=== PATIENT | female | born 1955 | race Caucasian/White ===

== ENCOUNTER → 2017-01-16 | Outpatient (CLI) | payer BC ==
[~2017-01-16] MED LIST: ALLEGRA-D1 TAB.SR3 PO; CALCIUM 500 +1 EAC6 PO; CELECOXIB200 MG PO; DEXILANT60 MG PO; DULOXETINE HCL60 M1 PO; GABAPENTIN400 M2 PO; GABAPENTIN800 MG PO; LEVOXYL50 MC1 PO; LORTAB 7.5-3251 EACH PO; LOSARTAN-HCTZ1 EAC1 PO; MAGNESIUM GLUC200 MG PO; MULTI VITAMIN1 EACH PO; PERCOCET 7.5-31 EACH PO; SEROQUEL PO; SINGULAIR PO; VITAMIN C1000 M2 PO; XARELTO10 MG PO
--- NOTE | ~2017-01-16 | CT92 ---
[facility] A Service of [facility] & [facility] RADIOLOGY TEXT RESULTS PATIENT: SARIKA THOMPSON LOCATION: CCAT : 53 UNIT #: [id number] AGE: [address]: Jovan Ryan MD SEX: F ORDER DR: [id number] [facility] [address] [place], [place] [address] [id number] O MR#: [id number] Acc #: [id number] NAME: SARIKA THOMPSON : 1955 SEX: F STUDY DATE/TIME: 01/16/2017 16:27 UNIT: CCA ROOM: STUDY DESCRIPTION: CT Lower Ext Lt Wo Cont Attending Physician: Dayton Ryan M.D. Referring Physician: Dayton Ryan M.D. Ordering Physician: Dayton Ryan M.D. Primary Care Physician: eYnni Geller M.D. MEDICAL IMAGING REPORT This report is preliminary unless electronic signature is present EXAM CT left ankle HISTORY 61-year-old female with history of injury 18-20 years ago now with advanced degenerative joint disease, pain mostly lateral aspect, worse over the last 2 years. COMPARISON Left ankle films 08/13/2016. This CT exam was performed with one or more of the following radiation dose reduction techniques: automatic exposure control, adjustment of mA and/or kV according to patient size, and iterative reconstruction. FINDINGS Thin section axial images performed through the left ankle and hindfoot. Multiplanar reconstructed images were reviewed at a workstation. Examination demonstrates advanced arthropathy involving primarily the mid to lateral aspect of the ankle joint with asymmetric joint space narrowing and associated medial tilting of the talus. Extensive subchondral cystic changes noted within the tibial plafond and also within the lateral talar dome. Arthropathic changes also identified within the posterior subtalar joint with a small amount of sclerosis and subchondral cystic change and also cystic change and joint space narrowing at the lateral distal tib-fib syndesmosis. 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 There is some fragmentation along the anterior aspect of the tibial plafond may represent fracturing through an osteophyte. Additional fragmentation also seen along the medial aspect of the ankle joint. Midfoot alignment appears maintained. Small joint effusion and mild soft STS. [facility] A Service of [facility] & [facility] RADIOLOGY TEXT RESULTS PATIENT: SARIKA THOMPSON LOCATION: [facility] : 53 UNIT #: [id number] AGE: [address]: Jovan Ryan MD SEX: F ORDER DR: tissue swelling about the ankle. The visualized ankle tendons appear intact. Apparent ossification within the anterior talofibular ligament may represent dystrophic ossification. Intrinsic foot musculature appears normal. IMPRESSION 1. Advanced degenerative arthropathy of the ankle joint primarily involving the lateral ankle joint as well as involvement of the distal tib-fib syndesmosis and to a lesser extent the posterior subtalar joint. The asymmetric joint space loss at the ankle joint does contribute to medial talar tilt and asymmetric widening of the ankle mortise. Other forms of arthritis such as a crystalline or inflammatory arthritis considered less likely in light of the patient's clinical history of trauma. 2. Some fragmentation along the lateral and anterior aspect of the ankle joint may represent a combination of loose bodies and dystrophic ossification. Dictated by... Johana Rose M.D. THIS IS AN ELECTRONICALLY VERIFIED REPORT Johana Rose M.D. at 01/17/2017 3:58 PM Tg TD: 01/17/2017 12:23 JOB #: [id number] MEDICAL IMAGING REPORT COPY
== END | disposition home or self-care (01) ==
LOC: CCAT 15:44
DX: M19.072 Primary osteoarthritis, left ankle and foot (principal)
CPT/HCPCS: 73700

== ENCOUNTER → 2017-02-19 | Outpatient (CLI) | payer BC ==
--- NOTE | ~2017-02-19 | EKG ---
PATIENT: SARIKA THOMPSON UNIT #: [id number] Ventricular Rate: 93 BPM Atrial Rate: 93 BPM P-R Interval: 130 ms QRS Duration: 74 ms Q-T Interval: 340 ms QTC Calculation(Bezet): 422 ms P [place]: 29 degrees Calculated R [place]: -31 degrees Calculated T [place]: 21 degrees Diagnosis Line: Normal sinus rhythm Diagnosis Line: Left axis deviation Diagnosis Line: Abnormal ECG Diagnosis Line: No previous ECGs available Diagnosis Line: Confirmed by AHMET CHAN MD ([id number]) on 02/19/2017 Diagnosis Line: 11:40:30 PM INTERPRETING MD: ROCIO MARION
[2017-02-19 15:25] LABS: HEMATOCRIT 41.7 % (35.0-45.0); MEAN CELL VOLUME 86.8 FL (83-96); MEAN CORPUSCULAR HEMOGLOBIN 29.1 PG (28-34); MEAN CORPUSCULAR HGB CONC 33.5 g/dL (30-36); MEAN PLATELET VOLUME 6.4 FL (6.5-11.5); RED BLOOD COUNT 4.8 X10e (3.90-5.30); RED CELL DISTRIBUTION WIDTH 14.3 % (11.0-15.5); WHITE BLOOD COUNT 4.6 X10e3 (4.0-10.5)
[2017-02-19 15:29] LABS: URINE APPEARANCE CLEAR; URINE BILIRUBIN NEG (NEG); URINE BLOOD NEG (NEG); URINE COLOR YELLOW; URINE GLUCOSE NEG (NEG); URINE KETONE NEG (NEG); URINE LEUKOCYTE ESTERASE NEG (NEG); URINE NITRATE NEG (NEG); URINE PH 6.5 (5-8); URINE PROTEIN NEG (NEG); URINE SPECIFIC GRAVITY 1.012 (1.003-1.035); URINE UROBILINOGEN 0.2 MG/DL (NEG)
[2017-02-19 15:31] LABS: CULTURE INDICATED? NO
[2017-02-19 16:00] LABS: BUN/CREATININE RATIO 24.28; CALCIUM SERUM 9.5 mg/dL (8.4-10.2); CREATININE SERUM 0.7 mg/dL (0.6-1.4); GLOM FILT RATE Estimated 92.2 mL/min (>60); POTASSIUM 3.7 mmol/L (3.5-5.1)
== END | disposition home or self-care (01) ==
LOC: CAMB 14:52
PROVIDERS: Orthopaedic Surgery
DX: Z01.818 Encounter for other preprocedural examination (principal); M19.072 Primary osteoarthritis, left ankle and foot
CPT/HCPCS: 80048; 81003; 85027; 87070; 93005

== ENCOUNTER 2017-03-05 12:06 | Inpatient (IN) | payer BC ==
--- NOTE | ~2017-03-05 | CR17 ---
[facility] A Service of [facility] & [facility] RADIOLOGY TEXT RESULTS PATIENT: SARIKA THOMPSON LOCATION: C4B 450-01 : [birth year] UNIT #: [id number] AGE: [address]: Jovan Ryan MD SEX: F ORDER DR: [id number] [facility] [address] [place], [place] [address] [id number] I MR#: [id number] Acc #: [id number] NAME: SARIKA THOMPSON : 1955 SEX: F STUDY DATE/TIME: 03/05/2017 15:58 UNIT: B ROOM: [facility] STUDY DESCRIPTION: CR Ankle 2 Views Lt Attending Physician: aDyton Ryan M.D. Ordering Physician: Dayton Ryan M.D. Primary Care Physician: Yenni Geller M.D. MEDICAL IMAGING REPORT This report is preliminary unless electronic signature is present EXAM Fluoroscopic intraoperative left ankle images 03/05/2017 HISTORY Left total ankle arthroplasty. FINDINGS Fluoroscopy time 1 minute 32 seconds. 2 fluoroscopic images. 2 fluoroscopic images of the left ankle obtained intraoperatively demonstrate patient undergoing left ankle arthroplasty. Please see the surgical report for full procedural details. Dictated by... Fabian Sosa M.D. THIS IS AN ELECTRONICALLY VERIFIED REPORT Fabian Sosa M.D. at 03/06/2017 2:38 PM Ron TD: 03/05/2017 22:13 JOB #: [id number] MEDICAL IMAGING REPORT Page 1 of 1 COPY
--- NOTE | ~2017-03-05 | HP ---
Unit #: [id number] #: [id number] Patient: SARIKA THOMPSON [id number] [address] [address] [id number] I MR#: [id number] NAME: SARIKA THOMPSON ROOM: 450 Age: Sex: F Admission Date: 03/05/2017 : 1955 Attending Physician: Dayton Ryan M.D. Primary Care Physician: Yenni Geller M.D. HISTORY AND PHYSICAL DATE OF ANTICIPATED ADMISSION/PROCEDURE March 05, 2017 CHIEF COMPLAINT Left ankle pain. HISTORY OF PRESENT ILLNESS The patient is a 61-year-old female with a four year history of increasing left ankle pain secondary to degenerative arthritis. She has failed to respond to conservative care to include bracing, antiinflammatory medication, and intermittent injection. She is now admitted for left ankle replacement. PAST MEDICAL HISTORY 1. Hypercholesterolemia. 2. Hypertension. 3. Thyroid disease. 4. Arthritis. PAST SURGICAL HISTORY 1. Breast lumpectomy. 2. Cholecystectomy. 3. Bilateral thumb arthroplasty. 4. Knee arthroscopy. 5. Knee replacement. 6. Tubal ligation. 7. Tonsillectomy. HOME MEDICATIONS 1. Multivitamins. 2. Vitamin D. ALLERGIES NEXIUM. SOCIAL HISTORY The patient is a social drinker. She does not smoke. FAMILY HISTORY Hypertension, diabetes, arthritis, coronary artery disease. REVIEW OF SYSTEMS Unremarkable. Unit #: [id number] #: [id number] Patient: SARIKA THOMPSON PHYSICAL EXAMINATION VITAL SIGNS: Height 5 feet 9, weight 175 pounds. GENERAL: This is a well-developed, well-nourished female in no acute distress. HEENT: Pharynx is clear. NECK: Supple without masses. HEART: Regular sinus rhythm without murmurs or gallops. LUNGS: Clear. ABDOMEN: Soft and nontender without masses or organomegaly. EXTREMITIES: Evaluation of the left foot demonstrates hindfoot valgus with ankle dorsiflexion zero degrees, plantar flexion 40 degrees, subtalar inversion 15 degrees, and eversion 5 degrees. The patient is tender to palpation over the tibiotalar joint. Sensation is normal. Pulses are normal. Motor exam is normal. There is clawing of digits two through five. DIAGNOSTIC STUDIES IMAGING: Standing x-rays of the left ankle demonstrate tibiotalar joint space narrowing with a subchondral cyst in the distal tibia and proximal talus. The cyst in the talus is 15 mm in diameter. There are 9 degrees of tibiotalar valgus. CT scan of the left ankle also shows a large cyst in the distal tibia and central talus. IMPRESSION Left ankle arthritis with distal tibial cyst and talar cyst. PLAN The patient will undergo left total ankle arthroplasty using the [employer] Infinity ankle replacement system. We will utilize a size 2 Infinity tibial component and a size 2 INBONE talar component. The procedure was described in detail along with the risks of bleeding, infection, nerve damage, need for further surgery in the future, prolonged recovery time, deep venous thrombosis, pulmonary embolism, anesthetic complications, loosening of the prosthesis, infection of the prosthesis, and need for multiple revision surgeries in the future. The patient understands the above risks and agrees to proceed. Dictated by Gustavo Wilkins/franca TD: 03/04/2017 20:28 JOB #: [id number] HISTORY AND PHYSICAL Page 1 of 1 X Jovan Ryan MD X HISTORY AND PHYSICAL
--- NOTE | ~2017-03-05 | OR ---
Unit #: [id number] #: [id number] Patient: SARIKA THOMPSON [id number] [address] [place], [place] [address] [id number] I MR#: [id number] NAME: SARIKA THOMPSON ROOM: 450 Date of Procedure: 03/05/2017 Admission Date: 03/05/2017 Surgeon: Dayton Ryan M.D. : 1955 Attending Physician: Dayton Ryan M.D. Primary Care Physician: Yenni Geller M.D. OPERATIVE REPORT PREOPERATIVE DIAGNOSIS Left ankle degenerative arthritis. POSTOPERATIVE DIAGNOSIS Left ankle degenerative arthritis. PROCEDURE PERFORMED Left total ankle arthroplasty (49830). ASSISTANTS Jose G and Patricio. ANESTHESIA Popliteal saphenous block and general. INDICATIONS FOR SURGERY The patient is a 61-year-old female with end-stage left ankle arthritis unresponsive to conservative care. She has not responded to bracing, injection, physical therapy, and medication. She is therefore to undergo ankle replacement. Risks and benefits of ankle fusion versus replacement have been discussed. Plans are then to proceed with left total ankle arthroplasty using the [employer] INFINITY ankle replacement system. Because of significant erosion of her talus, we will utilize the INBONE II talar component. DESCRIPTION OF PROCEDURE The patient underwent popliteal saphenous block. She was then taken to the operating room and placed in supine position. General anesthetic was induced. The left ankle was identified as the correct operative extremity during the time-out procedure. The IV antibiotic protocol was followed. The left leg was then prepped and draped in the usual sterile fashion. The leg was exsanguinated and the thigh tourniquet was inflated to 300 mmHg. An anterior longitudinal incision was made over the ankle measuring 12 cm. Subcutaneous tissue was carefully divided. The superficial peroneal nerve was identified and preserved. The extensor retinaculum was opened. The interval between the anterior tibial and extensor hallucis longus tendons was then developed. The neurovascular bundle was retracted laterally. The ankle joint was opened through a longitudinal capsular incision and was exposed subperiosteally. The patient's specific tibial guide was then placed on the surface of the tibia and position was checked with C-arm fluoroscopy. It was pinned into place and the guide was removed. The coronal sizing guide was placed and the medial and lateral Unit #: [id number] #: [id number] Patient: SARIKA THOMPSON drill holes were placed. The #2 tibial cutting guide was applied and the tibial and talar cuts were then coupled. The cut bone was removed. The tibia was sized at a size 2 standard and the talus was sized at a #1. The tibial trial was placed and the 3 punches were then utilized. The talar trial was then placed and positioned appropriately under C-arm fluoroscopic control. It was pinned into place and then the cannulated drill bit was used to make the hole for the central post. All wounds were copiously irrigated. The medial and lateral gutters were cleared of all osteophytic tissue. The #2 INFINITY tibial component was then impacted into place. The #1 INBONE II talar component was then impacted into place and the 6 mm poly pacer was then screwed into place. The ankle dorsiflexed to 5 degrees. Plantar flexion was 40 degrees. Subtalar motion was normal. There was no evidence of varus or valgus instability. No additional procedures were required at this time. A 3-minute dilute Betadine wash was then applied and this was lavaged with normal saline. The tourniquet was released with a total tourniquet time of 64 minutes. Bleeding was controlled with electrocautery. The ankle joint capsule was closed with 2-0 Vicryl [id number] sutures. The extensor retinaculum was closed with 2-0 Vicryl [id number] sutures. Subcutaneous tissue was closed with 3-0 Vicryl and the skin was closed with 3-0 nylon horizontal mattress sutures. Xeroform gauze, dressing, sponges, Webril, and a posterior fiberglass splint were applied. The patient was then transported to the recovery room in stable condition. ESTIMATED BLOOD LOSS Minimal. COMPLICATIONS None. SPECIMENS None. TOURNIQUET TIME 64 minutes. Dictated byGustavo Mancuso/sharan TD: 03/05/2017 23:45 JOB #: [id number] Unit #: [id number] #: [id number] Patient: SARIKA THOMPSON OPERATIVE REPORT Page 1 of 1 X Jovan Ryan MD PROCEDURE OPERATIVE NOTE
[~2017-03-05 12:06] MED LIST changes: -GABAPENTIN800 MG PO; -PERCOCET 7.5-31 EACH PO; -XARELTO10 MG PO
[2017-03-05] MEDS ORDERED: GABAPENTIN800 MG PO (12:46)
[2017-03-06] MEDS ORDERED: PERCOCET 7.5-31 EACH PO (10:31)
[2017-03-06] MEDS ORDERED: XARELTO10 MG PO (10:31)
== END 2017-03-06 15:05 | disposition home or self-care (01) | DRG 470 ==
LOC: CSUR 12:06 → CPACUOF 12:35 → C4B 18:19
PROVIDERS: Orthopaedic Surgery
PROC: 0SRG0JZ Replacement of Left Ankle Joint with Synthetic Substitute, Open Approach (ICD-10-PCS; principal; 2017-03-05 14:30)
DX: M19.072 Primary osteoarthritis, left ankle and foot (principal); I10 Essential (primary) hypertension; E78.00 Pure hypercholesterolemia, unspecified; Z90.49 Acquired absence of other specified parts of digestive tract; Z96.659 Presence of unspecified artificial knee joint; Z98.51 Tubal ligation status; M85.672 Other cyst of bone, left ankle and foot; K21.9 Gastro-esophageal reflux disease without esophagitis; E03.9 Hypothyroidism, unspecified; E78.5 Hyperlipidemia, unspecified; Z86.14 Personal history of Methicillin resistant Staphylococcus aureus infection
CPT/HCPCS: 73600; 76000; 94760; 97116; 97161; 97530; C1776; J0690; J1100; J1885; J2250; J2270; J2795; J3010; J3370